=== PATIENT | female | born 1965 | race African-American/Black ===

== ENCOUNTER 2017-02-18 22:00 | Emergency (ER) | payer BC ==
[~2017-02-18 22:00] MED LIST: NORV10 PO; PROTONIX PO
== END 2017-02-19 01:49 | disposition home or self-care (01) ==
LOC: ER 22:00
DX: J06.9 Acute upper respiratory infection, unspecified (principal); I10 Essential (primary) hypertension; K21.9 Gastro-esophageal reflux disease without esophagitis; Z87.891 Personal history of nicotine dependence; Z79.899 Other long term (current) drug therapy
CPT/HCPCS: 96372; 99283